=== PATIENT | female | born 1960 | race Asian ===

== ENCOUNTER 2023-07-28 06:53 | Day surgery (SDC) | payer OTHER ==
[~2023-07-28] VITALS: Ht 165.1 cm; Wt 56.8 kg
[~2023-07-28 06:53] MED LIST: AMLO5TAB66 PO; ATOR20TA65 PO; ENAL-87 PO; METF-1211 PO; SODIUM CHLORIDE 0.9% 1,000 ML ONE
[2023-07-28] MEDS ORDERED: PROPOFOL 1% 20 ML VIAL IVP ONE (06:54)
[2023-07-28] MEDS ORDERED: LIDOCAINE/PF 2% 5 ML VIAL IM ONE (06:54)
[2023-07-28 08:01] LABS: GLUCOMETER DEV NAME(LOC) SDS.; GLUCOSE,POINT OF CARE 117 MG/DL (70-110)
[2023-07-28] MEDS ORDERED: SODIUM CHLORIDE 0.9% 1,000 ML IV ONE (10:15)
== END 2023-07-28 10:40 | disposition home or self-care (01) ==
LOC: SURGERY 06:53
PROVIDERS: ATTEND Internal Medicine Gastroenterology
DX: K59.00 Constipation, unspecified (principal); E78.5 Hyperlipidemia, unspecified; I10 Essential (primary) hypertension; Z80.0 Family history of malignant neoplasm of digestive organs; E11.9 Type 2 diabetes mellitus without complications; I69.354 Hemiplegia and hemiparesis following cerebral infarction affecting left non-dominant side
CPT/HCPCS: 45378; 93005; 82962; J2704; J3490; J7030